=== PATIENT | female | born 1985 | race Caucasian/White ===

== ENCOUNTER 2021-09-02 16:08 | Outpatient (REF) | payer BC, SELFPAY ==
--- NOTE | ~2021-09-02 | XR_ITS ---
EXAMINATION: XR CHEST CLINICAL INFORMATION: Cough and fatigue COMPARISON: 07/05/2019 TECHNIQUE: 2 views of the chest were obtained. FINDINGS: Since the previous examination postsurgical changes revealed residual scarring on the left with blunting of left costophrenic angle. The right lung is clear. Cardiomediastinal silhouette is normal XR/XR chest 2V IMPRESSION: Postsurgical changes on the left with hyperinflation. Clear right lung
== END 2021-09-02 16:09 | disposition home or self-care (01) ==
LOC: HO.XRAY 16:08
PROVIDERS: PCP Internal Medicine; Visit Provider Internal Medicine
DX: R05.9 Cough, unspecified (principal); R53.83 Other fatigue
CPT/HCPCS: 71046

== ENCOUNTER → 2022-01-19 10:39 | Outpatient (BNVA) | payer BC, SELFPAY | PROVIDERS: PCP Internal Medicine; Visit Provider Advanced Practice Midwife | DX: Z13.89 Encounter for screening for other disorder (principal) ==

== ENCOUNTER 2022-07-08 13:04 | Outpatient (REF) | payer BC, SELFPAY ==
--- NOTE | ~2022-07-08 | XR_ITS ---
EXAMINATION: XR CHEST 2 VIEW CLINICAL INFORMATION: Cough COMPARISON: 09/02/2021 TECHNIQUE: PA and lateral views of the chest obtained. FINDINGS: The lungs are clear. Chronic blunting of the left costophrenic sulcus is unchanged. The cardiomediastinal silhouette is normal. XR/XR chest 2V IMPRESSION: No acute cardiopulmonary disease.
[2022-07-08 13:59] LABS: Binax Internal Control QC Valid; Binax Now Covid-19 Ag Negative (Negative); Binax Performed by: HO.BONILM
== END 2022-07-08 13:05 | disposition home or self-care (01) ==
LOC: HO.HMGCX 13:04
PROVIDERS: PCP Internal Medicine
DX: Z20.822 Contact with and (suspected) exposure to COVID-19 (principal); R05.9 Cough, unspecified; J06.9 Acute upper respiratory infection, unspecified
CPT/HCPCS: 71046; 87811; C9803

== ENCOUNTER 2022-07-20 14:04 | Outpatient (REF) | payer BC, SELFPAY ==
[2022-07-20 14:57] LABS: Influenza A PCR POSITIVE (Negative); Influenza B PCR NEGATIVE (Negative); Resp Syncy Virus RNA Qual PCR NEGATIVE (Negative); SARS COV2 PCR INHOUSE NEGATIVE (Negative)
== END 2022-07-20 14:05 | disposition home or self-care (01) ==
LOC: HO.LNP 14:04
PROVIDERS: Visit Provider Internal Medicine
DX: Z20.822 Contact with and (suspected) exposure to COVID-19 (principal); R05.9 Cough, unspecified; R06.02 Shortness of breath; R50.9 Fever, unspecified
CPT/HCPCS: 0241U

== ENCOUNTER 2022-07-20 16:16 | Outpatient (REF) | payer BC, SELFPAY ==
--- NOTE | ~2022-07-20 | XR_ITS ---
EXAMINATION: XR CHEST CLINICAL INFORMATION: COPD. Cough. COMPARISON: 09/02/[address] dated 04/29/2019. TECHNIQUE: PA and lateral views of the chest were obtained. FINDINGS: Again seen is blunting of the left lateral and posterior costophrenic sulci, unchanged. Linear bands of pleural-parenchymal scarring are noted in the superior segment of the left lower lobe. No consolidation, pneumothorax, or pleural effusion. Cardiac and mediastinal contours are normal. Pulmonary vasculature is unremarkable. Minimal degenerative spondylosis in the thoracic spine. XR/XR chest 2V IMPRESSION: No acute cardiopulmonary findings. Chronic blunting of the left lateral and posterior costophrenic sulci, unchanged from prior and likely due to pleural-parenchymal scarring. A small effusion is also possible.
[2022-07-20 16:45] LABS: D Dimer High Sensitivity 175 NG/ML
[2022-07-20 16:52] LABS: Hematocrit 44.1 % (37.0-47.0); Imm Gran Abs Auto 0.02 X10*3/uL (0.00-0.03); Imm Gran Pct Auto 0.4 % (0.0-0.4); MANUAL DIFF FLAG SCAN; PLT CLUMP 1; Red Cell Distribution Width 12.2 % (11.0-16.0); SCAN SMEAR FLAG 1
[2022-07-20 16:54] LABS: Basophils Percent Auto 0.6 % (0-2); Eosinophils Percent Auto 0.6 % (0-4); Lymphocytes Absolute Auto 0.6 X10*3/uL (1.2-4.9); Lymphocytes Percent Auto 11.6 % (20-40); Mean Corpuscular Hemoglobin 31.1 pg (27.0-33.0); Mean Corpuscular Volume 91.3 fL (80.0-98.0); Mean Platelet Volume 10.9 fL (9.4-12.3); Monocytes Absolute Auto 0.9 X10*3/uL (0.1-1.2); Monocytes Percent Auto 16.6 % (2-11); Neutrophils Absolute Auto 3.8 x10*3/uL (2.0-8.3); Neutrophils Percent Auto 70.2 % (45-73); Red Blood Count 4.83 X10*6/uL (4.20-5.50)
[2022-07-20 16:59] LABS: White Blood Count 5.4 X10*3/uL (4.8-10.8)
[2022-07-20 17:09] LABS: B Type Natriuretic Peptide 19 pg/mL (<100)
[2022-07-20 17:12] LABS: SLIDE REVIEW VERIFIED
[2022-07-20 17:15] LABS: Alanine Aminotransferase 9 U/L (0-31); Albumin Level 4.3 g/dL (3.5-5.0); Alkaline Phosphatase 45 U/L (39-117); Anion Gap 12 (12-20); Aspartate Amino Transferase 12 U/L (5-31); Bilirubin Total 0.6 mg/dL (0.0-1.0); Blood Urea Nitrogen 10 mg/dL (9-16); Calcium 9.2 mg/dL (8.4-10.2); Carbon Dioxide 25 mmol/L (22-29); Chloride 102 mmol/L (96-108); Estimated Glomerular Filt Rate > 60; Glucose Random 94 mg/dL (60-115); Sodium 135 mmol/L (135-145); Total Protein 7.1 g/dL (6.5-8.0)
== END 2022-07-20 16:17 | disposition home or self-care (01) ==
LOC: HO.XRAY 16:16
PROVIDERS: PCP Internal Medicine; Visit Provider Internal Medicine
DX: J44.9 Chronic obstructive pulmonary disease, unspecified (principal); R05.9 Cough, unspecified; R50.9 Fever, unspecified
CPT/HCPCS: 36415; 71046; 80053; 83880; 85025; 85379

== ENCOUNTER → 2022-12-22 14:32 | Outpatient (BNVA) | payer BC, SELFPAY | PROVIDERS: PCP Internal Medicine; Visit Provider Internal Medicine Pulmonary Disease ==

== ENCOUNTER 2023-01-06 14:04 | Outpatient (REF) | payer BC, SELFPAY ==
--- NOTE | ~2023-01-06 | CT_ITS ---
EXAMINATION: CT CHEST WITHOUT CONTRAST CLINICAL INFORMATION: Status post lung COMPARISON: 04/29/2019 TECHNIQUE: Multidetector volumetric CT imaging of the chest was done. Axial MIP volume rendering provided. Sagittal and coronal reformatted images were obtained. This CT examination was performed using dose optimization techniques as appropriate, variously including the following: *Automated exposure control *Adjustment of mA and/or kV according to patient size (this includes techniques or standardized protocols for targeted exams where dose is matched to indication/reason for exam; i.e. 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 There are no nodules infiltrates or pleural effusions seen. The airways are patent. MEDIASTINUM: The mediastinum is normal. CORONARY ARTERY CALCIFICATION: None visualized on this study. PLEURA: There is no pleural effusion. No pleural mass or thickening. AXILLA: No lymphadenopathy. UPPER ABDOMEN: Unremarkable. OSSEOUS STRUCTURES: Unremarkable. CT/CT chest wo IV con IMPRESSION: Status post left lower lobe resection. Edematous changes Fleischner guidelines were followed.
== END 2023-01-06 14:05 | disposition home or self-care (01) ==
LOC: HO.CT 14:04
PROVIDERS: PCP Internal Medicine; Visit Provider Internal Medicine Pulmonary Disease
DX: J18.9 Pneumonia, unspecified organism (principal); Z87.75 Personal history of (corrected) congenital malformations of respiratory system; Z90.2 Acquired absence of lung [part of]
CPT/HCPCS: 71250

== ENCOUNTER 2023-01-06 14:33 | Outpatient (REF) | payer BC, SELFPAY | END 2023-01-06 14:34 | disposition home or self-care (01) | LOC: HO.LNP 14:33 | PROVIDERS: Visit Provider Internal Medicine Pulmonary Disease | DX: R05.9 Cough, unspecified (principal) | CPT/HCPCS: 87070; 87205 ==

== ENCOUNTER 2023-01-10 13:54 | Outpatient (REF) | payer BC, SELFPAY ==
[2023-01-13 14:48] LABS: Immunoglobulin G Subclass 1 535 mg/dL (382-929); Immunoglobulin G Subclass 2 325 mg/dL (241-700); Immunoglobulin G Subclass 3 67 mg/dL (22-178); Immunoglobulin G Subclass 4 24.7 mg/dL (4-86); Immunoglobulin G Total 963 mg/dL (600-1640)
[2023-01-14 00:09] LABS: IgA 235 mg/dL (47-310); IgG 1005 mg/dL (600-1640); IgM 229 mg/dL (50-300)
== END 2023-01-10 13:55 | disposition home or self-care (01) ==
LOC: HO.LAB 13:54
PROVIDERS: PCP Internal Medicine; Visit Provider Internal Medicine Pulmonary Disease
DX: R05.9 Cough, unspecified (principal); J15.9 Unspecified bacterial pneumonia
CPT/HCPCS: 36415; 82784

== ENCOUNTER → 2023-01-24 14:27 | Outpatient (BNVA) | payer BC, SELFPAY | PROVIDERS: PCP Internal Medicine; Visit Provider Internal Medicine Pulmonary Disease ==

== ENCOUNTER 2023-07-19 13:12 | Outpatient (REF) | payer BC, SELFPAY ==
--- NOTE | ~2023-07-19 | XR_ITS ---
EXAMINATION: XR CHEST CLINICAL INFORMATION: Chest pain COMPARISON: Previous chest x-ray most recent June [address] December 2022 TECHNIQUE: 2 views of the chest were obtained. FINDINGS: The cardiac and mediastinal contours are normal. The lungs are clear. There is blunting at the left costophrenic angle similar to previous exams suggestive of pleural thickening. No pleural effusion or pneumothorax. Bony structures are unremarkable. XR/XR chest 2V IMPRESSION: No evidence for acute disease in the chest.
--- NOTE | ~2023-07-19 | XR_ITS ---
EXAMINATION: XR SHOULDER, RIGHT CLINICAL INFORMATION: Pain. COMPARISON: None available. TECHNIQUE: AP external rotation, Grashey, scapular Y, and axillary views of the right shoulder. FINDINGS: The bones and soft tissues are normal. No fracture. Glenohumeral and acromioclavicular alignment is anatomic with normal joint space. No abnormal soft tissue calcifications. XR/XR shoulder RT min 2V IMPRESSION: Normal right shoulder.
--- NOTE | ~2023-07-19 | XR_ITS ---
EXAMINATION: XR HIP, LEFT CLINICAL INFORMATION: Pain. COMPARISON: CT abdomen and pelvis dated 06/14/2008. TECHNIQUE: AP and frog-leg lateral views of the left hip. FINDINGS: No fracture. Alignment is anatomic. Hip joint space is maintained. There is a minimal chronic avulsion fragment or accessory ossification center noted lateral to the acetabular roof. Soft tissues are unremarkable. An intrauterine device is noted. XR/XR hip LT min 2V IMPRESSION: Unremarkable left hip.
[2023-07-19 16:07] LABS: MANUAL DIFF FLAG NO
[2023-07-19 16:25] LABS: Basophils Absolute Auto 0.1 X10*3/uL (0.0-0.2); Basophils Percent Auto 0.7 % (0-2); Eosinophils Absolute Auto 0.2 X10*3/uL (0.0-0.4); Eosinophils Percent Auto 2.7 % (0-4); Hematocrit 43.1 % (37.0-47.0); Hemoglobin 14.6 g/dl (12.0-16.0); Imm Gran Abs Auto 0.02 X10*3/uL (0.00-0.03); Imm Gran Pct Auto 0.3 % (0.0-0.4); Lymphocytes Absolute Auto 1.8 X10*3/uL (1.2-4.9); Mean Corpuscular HGB Conc 33.9 g/dl (31.0-35.0); Mean Corpuscular Hemoglobin 32.2 pg (27.0-33.0); Mean Corpuscular Volume 94.9 fL (80.0-98.0); Mean Platelet Volume 10.4 fL (9.4-12.3); Monocytes Absolute Auto 0.6 X10*3/uL (0.1-1.2); Monocytes Percent Auto 8.2 % (2-11); Neutrophils Absolute Auto 4.6 x10*3/uL (2.0-8.3); Neutrophils Percent Auto 63.1 % (45-73); Platelet Count 187 X10*3/uL (160-400); Red Blood Count 4.54 X10*6/uL (4.20-5.50); Red Cell Distribution Width 12.3 % (11.0-16.0); White Blood Count 7.4 X10*3/uL (4.8-10.8)
[2023-07-19 16:53] LABS: Alanine Aminotransferase 17 U/L (0-31); Albumin Level 4.2 g/dL (3.5-5.0); Alkaline Phosphatase 44 U/L (39-117); Anion Gap 10 (12-20); Aspartate Amino Transferase 14 U/L (5-31); Bilirubin Total 0.6 mg/dL (0.0-1.0); Blood Urea Nitrogen 14 mg/dL (9-16); Calcium 9.1 mg/dL (8.4-10.2); Carbon Dioxide 28 mmol/L (22-29); Chloride 106 mmol/L (96-108); Cholesterol 185 mg/dL (<200); Estimated Glomerular Filt Rate > 60; Glucose Random 101 mg/dL (60-115); Sodium 140 mmol/L (135-145)
[2023-07-19 17:02] LABS: Free T4 (Free Thyroxine) 0.82 ng/dL (0.71-1.85); Thyroid Stimulating Hormone 1.53 uIU/mL (0.32-4.0)
== END 2023-07-19 13:13 | disposition home or self-care (01) ==
LOC: HO.HMGCX 13:12
PROVIDERS: PCP Internal Medicine; Visit Provider Internal Medicine
DX: R10.9 Unspecified abdominal pain (principal); M25.511 Pain in right shoulder; Q65.89 Other specified congenital deformities of hip; R63.5 Abnormal weight gain; R07.9 Chest pain, unspecified
CPT/HCPCS: 36415; 71046; 73030; 73502; 80053; 82465; 82550; 84439; 84443; 85025; 86140

== ENCOUNTER 2023-08-22 09:33 | Outpatient (AMB) | payer BC, SELFPAY ==
--- NOTE | 2023-08-22 09:35 | MHC.OFFVIS ---
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 She had believes that she was scheduling an appointment for a Mirena removal. [facility] was negative in September of 2012. She had a Mirena IUD inserted May 24 2018 she says a year after the of her son. She delivered both children at [facility] the 1st was a girl I with a 27 hour labor and her 2nd was a boy who delivered very quickly. A lot of the visit was spent trying to explain why she was scheduled here but that nobody in this building would be aware of where our particular office is today as we just opened up 2 weeks ago. The patient states she has been on comfortable with the IUD ever since it was inserted and it was checked several times with ultrasounds and deemed to be fine. Her plan is for her who is sitting outside to get a vasectomy and he has made an initial appointment with a doctor but she does not know the date of his appointment for vasectomy. 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 She also has what she calls as an umbilical hernia that is being investigated. She says she has not had a mammogram and is anticipating that it will hurt. [facility] Medical History Viral upper respiratory tract infection with cough Female Reproductive History Menstrual Date of last menstrual period: 08/07/23 control method: other (IUCD unknown ?) Date of last pap smear: 10/15/12 (negative, prev.2006) History of abnormal pap smear: No Physical Exam Const General: healthy appearing, comfortable, no acute distress, well developed and alert Nutritional Appearance: average body habitus Orientation/consciousness: patient oriented x3 Limitations: no limitations HEENT Head: Yes normocephalic Neck Neck: Yes normal visual inspection Chest Chest palpation & inspection: normal inspection of the chest Breast/axilla inspection: normal inspection of the breasts and normal inspection of the axillae Breast/axilla palpation: normal palpation of the breasts and normal palpation of the axillae Resp Effort & Inspection: normal respiratory effort GI Inspection: Yes normal to inspection, No Abdominal wall edema and No distended Palpation (GI): Soft to palpation and nontender Other: Normal external nail kegger exam vagina pink moist with whitish discharge cervix multiparous very anterior tiny tip of IUD string that appears white noted in os. Uterus small retroverted mobile nontender good tone with Kegel. General: Yes bladder normal to palpation External Female Exam: normal external appearance and normal appearance of the urethra Speculum Exam - Vagina: normal appearance of the vagina, normal palpation and normal vaginal discharge Speculum Exam - Cervix: normal appearance of the cervix, normal palpation and nontender Bimanual exam- vagina & uterus: normal bimanual exam, normal palpation, uterine size normal, bladder normal to palpation, consistency normal, normal palpation, uterine mobility normal, uterine shape normal, No Cervical tenderness present, non-tender and no cervical motion tenderness Bimanual Exam- Adnexa, other: normal adnexae, no masses, normal and No adnexal tenderness Neuro General: patient oriented x3 Assessment & Plan Assessment & Plan (1) S/P lobectomy of lung: Code(s): Z90.2 - Acquired absence of lung [part of] (2) Breast cancer screening: Code(s): Z12.39 - Encounter for other screening for malignant neoplasm of breast (3) Cervical cancer screening: Comment: Last Pap in system 10/15/12-and previous Pap -2006. Code(s): Z12.4 - Encounter for screening for malignant neoplasm of cervix (4) IUD (intrauterine device) in place: Code(s): Z97.5 - Presence of (intrauterine) contraceptive device (5) Well woman exam with routine gynecological exam: Code(s): Z01.419 - Encounter for gynecological examination (general) (routine) without abnormal findings Plan -----Discussed in this visit the following: healthy balanced diet, regular and consistent exercise, getting recommended health screens, doing the best she can for her particular health concerns, kegel exercises, pap smear screening and followup recommendations, mammography screening and SBE, normal changes in cycles in her life stage--- . Discussed the importance of breast cancer screening and that we recommend annual screening from age 40 on she has an aunt who had breast cancer. The patient is reluctant to go because she is afraid it will hurt I recommend scheduling it for after her. When it is more likely to be more comfortable. Discussed that she also could have her IUD removed with her. And it would be more likely to be comfortable then as well as it is easier to remove for her. Discussed that it would not be usual for us to remove an IUD at the 1st visit in 7 years and that was an error in scheduling she may have the Mirena (if it is a Mirena) removed it either office but it would need to be scheduled appropriately. She will be following up with her primary care provider and another doctor about the hernia and I will order her mammogram. I urged safer sex and backup with condoms if she ever feels that she has symptoms of ovulation which she is unsure about and also after the IUD is removed and until her gets his negative sperm count reading. Orders: Orders Pap Smear Today Z01.419 - Encounter for gynecological examination (general) (routine) without abnormal findings Bacterial Vaginosis Panel Today Z20.2 - Contact with and (suspected) exposure to infections with a predominantly sexual mode of transmission MM tomosynthesis screening BI Today Z01.419 - Encounter for gynecological examination (general) (routine) without abnormal findings, Z12.31 - Encounter for screening mammogram for malignant neoplasm of breast, Z12.39 - Encounter for other screening for malignant neoplasm of breast CT NG by PCR Today Z01.419 - Encounter for gynecological examination (general) (routine) without abnormal findings Coding Level of Care Code New Pt Prev Care 40-64y(00107) Diagnoses S/P lobectomy of lung Z90.2 Breast cancer screening Z12.39 Cervical cancer screening Z12.4 IUD (intrauterine device) in place Z97.5 Well woman exam with routine gynecological exam Z01.419
[2023-08-22 09:51] VITALS: BP 118/72; BMI 32.2
== END 2023-08-22 10:29 | disposition home or self-care (01) ==
LOC: HO.HWSM 09:33
PROVIDERS: PCP Internal Medicine; Visit Provider Advanced Practice Midwife
DX: Z01.419 Encounter for gynecological examination (general) (routine) without abnormal findings (principal)
CPT/HCPCS: 99386

== ENCOUNTER 2023-08-22 09:33 | Outpatient (REF) | payer BC, SELFPAY ==
[2023-08-23 15:33] LABS: BV Int Neg Control Negative (Negative); BV Int Pos Control Positive (Positive)
[2023-08-24 11:04] LABS: CT PCR NOT DETECTED (Not Detect.); NG PCR NOT DETECTED (Not Detect.)
== END 2023-08-22 09:34 | disposition home or self-care (01) ==
LOC: HO.LAB 09:33
PROVIDERS: PCP Internal Medicine; Visit Provider Advanced Practice Midwife
DX: Z01.419 Encounter for gynecological examination (general) (routine) without abnormal findings (principal); Z11.51 Encounter for screening for human papillomavirus (HPV); Z20.2 Contact with and (suspected) exposure to infections with a predominantly sexual mode of transmission; Z97.5 Presence of (intrauterine) contraceptive device; Z90.2 Acquired absence of lung [part of]
CPT/HCPCS: 0353U; 87480; 87510; 87624; 87660; 88142

== ENCOUNTER 2023-10-07 10:44 | Outpatient (REF) | payer BC, SELFPAY ==
--- NOTE | ~2023-10-07 | MM_ITS ---
EXAMINATION: MM SCREENING DIGITAL BREAST TOMOSYNTHESIS, BILATERAL CLINICAL INFORMATION: Screening. Asymptomatic. COMPARISON: Mammography: This is a baseline mammogram. TECHNIQUE: Digital breast tomosynthesis is performed in both the craniocaudal and mediolateral oblique views along with computer-aided detection (CAD). Synthesized 2D images are generated from the tomosynthesis. FINDINGS: The breasts are heterogeneously dense, which may obscure small masses (ACR BI-RADS breast composition Category c). There are no significant masses, abnormal calcifications, or other abnormalities. MM/MM tomosynthesis screening BI IMPRESSION: No mammographic evidence of malignancy. ASSESSMENT: BI-RADS BI-RADS 1 - Negative RECOMMENDATION: Routine annual mammography screening. 1 year F/U This examination should not preclude the clinical evaluation of a suspicious palpable abnormality. This patient's information was entered into a reminder system with a target due date for their next mammogram.
== END 2023-10-07 10:45 | disposition home or self-care (01) ==
LOC: HO.MAMMO 10:44
PROVIDERS: PCP Internal Medicine; Visit Provider Advanced Practice Midwife
DX: Z12.31 Encounter for screening mammogram for malignant neoplasm of breast (principal)
CPT/HCPCS: 77063; 77067

== ENCOUNTER → 2023-10-07 10:45 | Outpatient (BNV) | payer BC, SELFPAY | PROVIDERS: PCP Internal Medicine; Visit Provider Radiology Diagnostic Radiology | DX: Z12.31 Encounter for screening mammogram for malignant neoplasm of breast (principal) | CPT/HCPCS: 77063; 77067 ==

== ENCOUNTER 2024-01-31 13:14 | Outpatient (REF) | payer BC, SELFPAY ==
[2024-01-31 16:31] LABS: Alanine Aminotransferase 11 U/L (0-31); Albumin Level 4.3 g/dL (3.5-5.0); Alkaline Phosphatase 58 U/L (39-117); Aspartate Amino Transferase 11 U/L (5-31); Bilirubin Direct 0.2 mg/dL (0.0-0.5); Bilirubin Total 0.5 mg/dL (0.0-1.0)
== END 2024-01-31 13:15 | disposition home or self-care (01) ==
LOC: HO.HMGCLDS 13:14
PROVIDERS: PCP Internal Medicine; Visit Provider Podiatrist
DX: B35.1 Tinea unguium (principal)
CPT/HCPCS: 36415; 80076

== ENCOUNTER 2024-02-08 13:47 | Outpatient (AMB) | payer BC, SELFPAY ==
[2024-02-08 14:03] VITALS: BP 118/70; BMI 31.6
--- NOTE | 2024-02-08 14:03 | A.OFFVIS_ITS ---
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 Allergies No Known Allergies [No Known Allergies*] Allergy (Verified 02/08/24 14:05) hops Allergy (Unknown, Uncoded 02/08/24 14:05) stomach upset Medication List - Last Reconciled 02/08/24 by Annabella Box CNM albuterol sulfate 90 mcg/actuation 1 inh inhalation Q4-6H PRN levonorgestrel (Mirena) intrauterine Is last menstrual period known: Yes Last menstrual period: 01/28/24 Do you need a note to return to daycare/school/sports/work: No HPI HPI IUD Removal: Details: Patient is here at the front window saying she has an appointment today for her IUD removal she wanted it removed in August but since we did not have the right equipment the got rescheduled and it had been rescheduled a few times. She says she has had discomfort ever since the IUD was placed and her plan is for her to get a vasectomy and she has bought condoms and is ready with them implants to use them until such time as he gets his vasectomy and negative sperm count.. It was confusion about the appointment in that it was scheduled in the system for different day which she is on vacation that day and she would never have scheduled then. [facility] Medical History Viral upper respiratory tract infection with cough Female Reproductive History Menstrual Age of Menarche: 9 Duration of menses: 3-5 days Date of last menstrual period: 01/28/24 control method: progestin IUCD Total pregnancies: 2 Full term: 2 Date of last pap smear: 08/22/23 (negative) History of abnormal pap smear: No Physical Exam Vital Signs: Last Vital Signs BP 118/70 02/08/24 14:03 BMI result Body Mass Index 31.6 Other: IUD string had been easily seen the last visit. Cervix multiparous IUD string not visible initially cervical os was probed with 2 Cytobrush is until the very edge of the Mirena string into view string was grasped with forceps and removed with 1 tug is patient coughed. She did experience some cramping that it she has already taken ibuprofen. Patient tolerated well. Office Procedures IUD Insert/Removal Details Details: See exam section strings not initially visible teased into view with 2 Cytobrush is then strings were grasped with forceps Mirena IUD was removed was 1 tug while patient gave a cough who has no bleeding she would some cramping but tolerated it well she visualized her cervix afterwards.. [id number] Removal Procedure code (CPT) selection complete Results Reviewed Results Reviewed: Review of last visit. Assessment & Plan Assessment & Plan (1) IUD (intrauterine device) in place: Code(s): Z97.5 - Presence of (intrauterine) contraceptive device Category: Social Hx (2) Encounter for IUD removal: Code(s): Z30.432 - Encounter for removal of intrauterine contraceptive device Category: Medical Plan See exam seizure IUD removed easily with 1 tug after strings were teased into view with Cytobrush. Patient clear she will be using condoms until such time as her 's vasectomy is done and reveals sperm count is 0. See her for annual exams otherwise. She is going to [facility] the week the other appointment was suppo sedly made. discussed her plans. Orders: Orders AMB IUD Insertion/Removal - Patient Supply Today Z30.432 - Encounter for removal of intrauterine contraceptive device, Z97.5 - Presence of (intrauterine) contraceptive device Coding Level of Care Code Est Pt Level 3 (25354) Diagnoses IUD (intrauterine device) in place Z97.5 Encounter for IUD removal Z30.432 CPT Codes Details - CPT: 69086-IHO Removal ([id number])
== END 2024-02-08 14:41 | disposition home or self-care (01) ==
LOC: HO.HWSM 13:47
PROVIDERS: PCP Internal Medicine; Visit Provider Advanced Practice Midwife
DX: Z30.432 Encounter for removal of intrauterine contraceptive device (principal)
CPT/HCPCS: 58301

== ENCOUNTER → 2024-02-08 13:47 | Outpatient (BNVA) | payer BC, SELFPAY | PROVIDERS: PCP Internal Medicine; Visit Provider Advanced Practice Midwife | DX: Z30.432 Encounter for removal of intrauterine contraceptive device (principal) | CPT/HCPCS: 58301 ==

== ENCOUNTER 2025-07-03 09:24 | Outpatient (AMB) | payer BC, SELFPAY ==
--- NOTE | 2025-07-03 08:02 | MHC.PC.OV ---
Vital Signs 07/03/25 09:29 Height 5 ft 2 in Weight 154 lb BMI 28.2 BP 116/70 Blood Pressure Location Rt brachial Position Sitting Pulse 65 Pulse Source Pulse Oximeter Temp 97.8 F Temp Source Temporal Artery Scan Pulse Oximetry (%) 99 Oxygen Delivery Method Room Air Intake Visit Reasons: DEVI/Croke upper back, (see comments) Doughmaker Required: No Accompanied by: Self / Same As Patient Allergies No Known Allergies (No Known Allergies*) Allergy (Verified 07/03/25 08:06) hops Allergy (Unknown, Uncoded 02/08/24 14:05) stomach upset Medication List - Last Reconciled 07/03/25 by LILIBETH Mccollum cyclobenzaprine 5 mg PO TID 14 days methylprednisolone (Medrol (Isrrael)) PO PER PKG DIR for 6 days Tobacco use date assessed: 07/03/25 Dental Screening Dental Screen Date: 07/03/25 Did you have a dental visit in the last 12 months?: No Did you have a dental problem in the last 6 months where you did not have access to dental care?: No HPI HPI Comments History of Present Illness Details The patient is a 40-year-old female presenting with arm pain. The pain began last week after she struggled to get her 12-year-old daughter out of bed. She describes the pain as involving the entire arm unit, located in the armpit, shoulder socket, and radiating down to the elbow, affecting both the front and back of the arm, as well as extending into the neck and behind the shoulder blade. The patient has a history of a pectoral and rotator cuff injury in high school that she feels never healed incorrectly. This prior injury causes intermittent issues, such as difficulty lifting items overhead, a getting-stuck sensation, and an inability to carry a purse or backpack on that shoulder for extended periods. For the current symptoms, she has tried heat, ice, and a single day of ibuprofen. She reports a past negative experience with gabapentin. She reports feeling constantly cold and acknowledges a family history of anemia and thyroid cancer, prompting her to request checks on her iron reserves and thyroid function. The patient is generally healthy, is not taking any regular medications, and has an allergy to hops. She is due for labs. Her PAP is due in 08/2026. She declines mammogram. She feels compressing the breasts causes more harm than good. Medical History: - Allergy to hops - History of pectoral and rotator cuff injury in high school - Past adverse reaction to gabapentin - Possible anemia, per family history Medications: - The patient is not on any current medications. Patient was informed and verbally consented to the use of an ambient scribe for clinic note documentation during this visit. [facility] Medical History (Updated 07/03/25 @ 10:10 by LILIBETH Mccollum) Cold intolerance Health care maintenance Right arm pain Viral upper respiratory tract infection with cough Family History (Updated 07/03/25 @ 09:34 by Mary Guerrero MA) Mother No problems noted. Father No problems noted. Social History Housing: House Patient Tobacco Use Status: Former Tobacco user e-Cigarette/Vaping Use: Former Use service: No Current occupational status: employed Cognitive needs: No Hearing needs: No Vision needs: Yes (rx glasses) Female Reproductive History Menstrual Age of Menarche: 9 Questionnaire PHQ-9 Over the last 2 weeks, how often have you been bothered by any of the following problems? 1. Little interest or pleasure in doing things: not at all 2. Feeling down, depressed, or hopeless: several days 3. Trouble falling or staying asleep, or sleeping too much: nearly every day 4. Feeling tired or having little energy: nearly every day 5. Poor appetite or overeating: not at all 6. Feeling bad about yourself - or that you are a failure or have let yourself or your family down: not at all 7. Trouble concentrating on things, such as reading the newspaper or watching television: not at all 8. Moving or speaking so slowly that other people could have noticed. Or the opposite - being so fidgety or restless that you have been moving around a lot more than usual: not at all 9. Thoughts that you would be better off or of hurting yourself in some way: not at all Total score: 7 Depression Screening Interpretation: Positive Depression Screening Follow-up: Follow-up Visit Requested Depression Screening Done: Yes 09680 - PHQ-9 Billing: Yes Source: Developed by Drs. Selvin Martinez, Inessa Lundberg, Cale Archuleta and colleagues, with an educational dominguez from [employer]. Thrive Questionnaire Date Thrive assessed: 07/03/25 I am a: Patient Within the past 12 months, did the food you bought not last and you didn't have the money to get more?: Never true Within the past 12 months, did you worry whether your food would run out before you got money to buy more?: Never true Do you have trouble paying for medicines?: No Do you have trouble getting transportation to medical appointments?: No Do you have trouble paying your heating and electricity bill?: No Do you have trouble taking care of your child, family member or friend?: No Do you have trouble with day-to-day activities such as bathing, preparing meals, shopping, managing finances, etc.?: No Are you currently unemployed and looking for a job?: No Are you interested in more education?: No THRIVE Score: 0 AUDIT C Alcohol Use Questionnaire (AUDIT-C) 1. How often do you have a drink containing alcohol?: Monthly or less 2. How many drinks containing alcohol do you have on a typical day when you are drinking?: 1 or 2 3. How often do you have six or more drinks on one occasion?: Less than monthly Total Score: 2 ALIS-7 AMB Questionnaire ALIS-7 Date ALIS - 7 assessed: 07/03/25 Feeling nervous, anxious, or on edge: 0 = Not at all Not being able to stop or control worryin = Not at all Worrying too much about different things: 0 = Not at all Trouble relaxin = Not at all Being so restless that it is hard to sit still: 0 = Not at all Becoming easily annoyed or irritable: 0 = Not at all Feeling afraid as if something awful might happen: 0 = Not at all Total ALIS-7 score (0-4 normal; 5-9 mild; 10-14 moderate; 15-21 severe): 0 Source: Developed by Drs. Selvin Martinez, Inessa Lundberg, Cale Archuleta and colleagues, with an educational dominguez from [employer]. Review of Systems Narrative - Musculoskeletal: Reports severe pain in the arm, originating in the armpit and shoulder socket and radiating down to the elbow, into the neck, and behind the shoulder blade. - She also reports that her hips pop in and out of socket when walking. - General: Reports feeling constantly cold. - Allergic/Immunologic: Reports an allergy to hops. Physical exam (Primary Care) Vital Signs: Last Vital Signs Temp 97.8 F 07/03/25 09:29 Pulse 65 07/03/25 09:29 BP 116/70 07/03/25 09:29 Pulse Ox 99 07/03/25 09:29 Oxygen Delivery Method Room Air 07/03/25 09:29 BMI result Body Mass Index 28.2 GENERAL Well developed, Well nourished, in no apparent distress HEENT Head-Normocephalic Neck- Supple, No lymphadenopathy, thyroid WNL RESPIRATORY Normal I:E, Clear to auscultation CARDIOVASCULAR Regular, rate and rhythm, No murmurs or rubs MUSCULOSKELETAL On palpation, there is tenderness in the shoulder socket. - Muscle spasms and tenderness are noted in the back, and palpation of the back elicits a pulling sensation in the armpit. - Mild crepitus is present with shoulder movement. NEUROLOGICAL Gait normal PSYCHIATRIC Oriented to person, place and time Mood and affect -mild depression Appearance WNL Speech WNL Thought processes WNL Tobacco/Smoking Status: Tobacco use Status Tobacco use date assessed 07/03/25 07/03/25 08:09 Patient Tobacco Use Status Former Tobacco user 07/03/25 09:35 e-Cigarette/Vaping Use Former Use 07/03/25 09:35 PHQ-9: PHQ-9 Score PHQ-9: Total score 7 07/03/25 09:35 Depression Screening Interpretation: Positive Depression Screening Follow-up: Follow-up Visit Requested Thrive Assessment: Date of Thrive Assessment Date Thrive assessed 07/03/25 07/03/25 08:18 Coding Level of Care Code Established Pt Est Pt Level 4 (99867) Patient Type Established Diagnoses Right arm pain M79.601 Breast cancer screening Z12.39 Positive screening for depression on 9-item Patient Health Questionnaire (PHQ-9) Z13.31 Additional Codes PHQ-9 - 09401 - PHQ-9 Billing: Yes ([id number]) Time Spent (min) 30 Comment Time spent on chart review, H&P, patient education and orders. Assessment & Plan Assessment & Plan (1) Right arm pain: Code(s): M79.601 - Pain in right arm Category: Medical Plan: The patient's presentation with pain in the armpit, shoulder socket, and radiating down the arm is suggestive of a muscle and tendon sprain/strain, especially given the inciting event and physical exam findings of muscle spasms. A short course of oral steroids via a Medrol dose pack was chosen over NSAIDs to manage inflammation, as the patient reports that high doses of ibuprofen are not effective for her. Cyclobenzaprine will be prescribed as a muscle relaxer to address the significant muscle spasms. She was advised to continue using heat, perform daily full range of motion exercises to prevent frozen shoulder, and to follow up in one to two weeks if her symptoms are not 70-80% improved, at which point physical therapy will be considered. (2) Breast cancer screening: Code(s): Z12.39 - Encounter for other screening for malignant neoplasm of breast Category: Medical Plan: Given the patient's family history of a maternal aunt with breast cancer in her early 30s, annual breast cancer screening is recommended. The patient has declined future mammograms due to discomfort from the compression. The limitations of ultrasound as a primary screening tool and the high cost of MRI were discussed. (3) Positive screening for depression on 9-item Patient Health Questionnaire (PHQ-9): Code(s): Z13.31 - Encounter for screening for depression Plan: Patient's PHQ9 was 7. She is not interested in treatment at this time. Will monitor. Patient to schedule for PE Plan The patient's presentation with pain in the armpit, shoulder socket, and radiating down the arm is suggestive of a muscle and tendon sprain/strain, especially given the inciting event and physical exam findings of muscle spasms. A short course of oral steroids via a Medrol dose pack was chosen over NSAIDs to manage inflammation, as the patient reports that high doses of ibuprofen are not effective for her. Cyclobenzaprine will be prescribed as a muscle relaxer to address the significant muscle spasms. She was advised to continue using heat, perform daily full range of motion exercises to prevent frozen shoulder, and to follow up in one to two weeks if her symptoms are not 70-80% improved, at which point physical therapy will be considered. Orders: Orders Ferritin Today R68.89 - Other general symptoms and signs, Z00.00 - Encounter for general adult medical examination without abnormal findings TSH reflex Free T4 Today R68.89 - Other general symptoms and signs, Z00.00 - Encounter for general adult medical examination without abnormal findings Vitamin D 25-OH Total Today Z00.00 - Encounter for general adult medical examination without abnormal findings Complete Blood Count no Diff Today Z00.00 - Encounter for general adult medical examination without abnormal findings Comprehensive Met. Panel Today R68.89 - Other general symptoms and signs, Z00.00 - Encounter for general adult medical examination without abnormal findings, Z13.1 - Encounter for screening for diabetes mellitus Lipid Panel Today Z00.00 - Encounter for general adult medical examination without abnormal findings, Z13.220 - Encounter for screening for lipoid disorders Medications: New methylprednisolone (Medrol (Isrrael)) PO PER PKG DIR for 6 days 21 ea 0RF cyclobenzaprine 5 mg PO TID 42 tabs 0RF for muscle tightness 14 days Patient Instructions: - I am sending two prescriptions to your pharmacy, [facility] on [facility]. - The first prescription is a Medrol dose pack, which is a 6-day course of steroids. - The second is for cyclobenzaprine, a muscle relaxer. - Take the muscle relaxer at night initially, as it can cause sleepiness. - Continue to use heat on the affected area and perform daily range of motion exercises, such as walking your fingers up a wall, to prevent the shoulder from getting stiff. - Please call the office in 1-2 weeks if your shoulder is not about 70-80% better after finishing the steroid medication. - I have put in orders for lab work. - Please do not eat or drink anything except water for 8-12 hours before the blood test (fasting). - Please schedule an appointment for a physical exam at the front desk attendant.
[2025-07-03 09:29] VITALS: BP 116/70; PULSE 65; TEMP 36.6; O2SAT 99; BMI 28.2
--- OUTSIDE RECORDS SUMMARY | 2025-07-03 10:46 | XMS_ITS | Patient Health Record ---
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 6-10 How soon after you wake up d o you smoke your first cigarette? within 5 minutes Are you interested in quitting? Thinking about q uitting Alcohol Screen Question Answer Notes Did you have a drink containing alcohol in the p ast year? Yes Points 0 Interpretation Negative Tobacco use other than smoking: Question Answer Notes Are you an other tobacco user? No Plan Of Treatment Pending Test Test Name Order Date *Liver Function Test (LFT) 01/29/2024 Insurance Providers Payer Name Payer Address Payer Phone Subscriber Number Group Number Insured Name Patient Relationship to Insured Coverage Start Date Coverage End Date [facility] [address] [place] [address] [phone] [id number] Sivakumar Becerra Spouse - patient is the spouse of the insured Medical (General) History Medical History History ICD Code Back,Hip,and Knee pain Chicken pox hip displaytion Surgical History Surgery Date(Month/Year) lung surgery
--- OUTSIDE RECORDS SUMMARY | 2025-07-03 10:46 | XMS_ITS | Clinical Summary ---
Author Organization [facility] it[facility] Address [address] [place] [address] Care Team Providers Care Composite Bond Worker Name Role Phone Unavailable Primary Care Provider Unavailabl e Social History Tobacco Use Types Packs/Day Years Used Date Smoking Tobacco: Never Assessed Comments Unknown Sex and Gender Information Value Date Recorded Sex Assigned at Not on file Legal Sex Female 3:47 AM EST Gender Identity Not on file Sexual Orientation Not on file Plan of Treatment Health Maintenance Due Date Last Done Comments Breast Cancer Screening 1983 DTaP,Tdap,and Td Vaccines (1 - Tdap) 2002 Hepatitis B Vaccines (1 of 3 - 19+ 3-dose series) 2002 Cervical Cancer Screening: P ap Smear 2004 HPV Vaccines (1 - 3-dose SCD M series) 2010 Depression Screening 08/21/2024 COVID-19 Vaccine ( - 2024-2 6 season) 2025 Influenza Vaccine (#1) 2025 RSV Immunization Adult Patie nts (1 - 1-dose 75+ series) 2058 HIB Vaccines Aged Out No longer eligi ble based on patient's age to complete this topic Hepatitis A Vaccines Aged Out No long er eligible based on patient's age to complete this topic IPV Vaccines Aged Out No longer eligi ble based on patient's age to complete this topic MMR Vaccines Aged Out No longer eligi ble based on patient's age to complete this topic Meningococcal ACWY Vaccine Aged Out N o longer eligible based on patient's age to complete this topic Meningococcal B Vaccine Aged Out No l onger eligible based on patient's age to complete this topic Pneumococcal Vaccine: Pediat rics (0 to 5 Years) and At-Risk Patients (6 to 49 Years) Aged Out No longer eligible b ased on patient's age to complete this topic RSV Immunization Patients Un bailee 20 months Aged Out No longer eligible b ased on patient's age to complete this topic Varicella Vaccines Aged Out No longer eligible based on patient's age to complete this topic
== END 2025-07-03 10:02 | disposition home or self-care (01) ==
PROVIDERS: PCP Physician Assistant Medical; Visit Provider Physician Assistant Medical
DX: M79.601 Pain in right arm (principal); Z12.39 Encounter for other screening for malignant neoplasm of breast; Z13.31 Encounter for screening for depression

== ENCOUNTER 2025-07-28 09:28 | Outpatient (AMB) | payer BC, SELFPAY ==
--- NOTE | 2025-07-28 09:31 | A.OFFPC_ITS ---
Vital Signs 07/28/25 09:37 Height 5 ft 2.4 in Weight 155 lb BMI 28.0 BP 114/64 Blood Pressure Location Lt brachial Position Sitting Respiration 18 Pulse 78 Pulse Source Pulse Oximeter Temp 97.8 F Temp Source Temporal Artery Scan Pulse Oximetry (%) 98 Oxygen Delivery Method Room Air Intake Visit Reasons: Annual Leaf Size Picker Required: No Accompanied by: Self / Same As Patient Allergies No Known Allergies (No Known Allergies*) Allergy (Verified 07/28/25 09:32) hops Allergy (Unknown, Uncoded 02/08/24 14:05) stomach upset Medication List - Last Reconciled 07/28/25 by LILIBETH Mccollum cyclobenzaprine 5 mg PO TID nabumetone 750 mg PO BID Tobacco use date assessed: 07/03/25 Dental Screening Dental Screen Date: 07/03/25 HPI HPI Comments History of Present Illness Details History of Present Illness The patient is a 40 year old female presenting with follow-up of persistent right arm pain. She reports that the pain has improved after taking steroids, which reduced significant swelling that had made her arm feel like mountains. The pain is now felt from her elbow up to the back of her neck and is particularly tender in the posterior aspect of her arm and upper back. 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 The patient has a history of having a lung taken out and requested a follow-up chest x-ray for monitoring. Her blood pressure today was 116/72 mmHg, which is well-controlled. She did not complete her lab work prior to the visit, noting it has been a couple of years since her last labs were drawn. Surgical History: - History of lung removal. Medications: - Cyclobenzaprine for arm pain. - A steroid (unspecified) was recently t aken for arm swelling. Family History: - Son has autism. Health Maintenance - The patient has not had lab work done in a couple of years. - Discussed getting baseline lab work. - Discussed a chest x-ray for surveillan ce following a prior lung removal. 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 - Family Status: She is with two children, one in middle school and one in elementary school. - Substance Use: She states she will be drinking alcohol on one day during her upcoming vacation as part [place]. - Her is a recovering alcoholic. - Family Planning: Her is schedu led for a vasectomy next Monday, nine years after their son was born. - Stressors: She describes a very busy s chedule, managing two jobs and transportation for her and two children with only one car, making time for commitments like physical therapy a significant challenge. - Her son has autism, and she reports ch georgesmorales with his current school, hoping to get him transferred to a special school. Patient was informed and verbally consented to the use of an ambient scribe for clinic note documentation during this visit. [facility] Medical History (Updated 07/28/25 @ 10:27 by LILIBETH Mccollum) Cold intolerance Health care maintenance Right arm pain Upper back pain on right side Viral upper respiratory tract infection with cough Family History (Updated 07/03/25 @ 09:34 by Mary Guerrero MA) Mother No problems noted. Father No problems noted. Social History Housing: House Patient Tobacco Use Status: Former Tobacco user e-Cigarette/Vaping Use: Former Use service: No Current occupational status: employed Cognitive needs: No Hearing needs: No Vision needs: Yes (rx glasses) Female Reproductive History Menstrual Age of Menarche: 9 Questionnaire Thrive Questionnaire Date Thrive assessed: 07/03/25 ALIS-7 AMB Questionnaire ALIS-7 Date ALIS - 7 assessed: 07/03/25 Source: Developed by Drs. Selvin Martinez, Inessa Lundberg, Cale Archuleta and colleagues, with an educational dominguez from [employer]. Review of Systems Narrative CONSTITUTIONAL Negative HEAD/NECK Neck pain on right RESPIRATORY Negative CARDIOVASCULAR Negative MUSCULOSKELETAL Right arm pain from elbow to shoulder Upper back pain on right with muscle tightness NEUROLOGICAL Negative PSYCHIATRIC Negative Physical exam (Primary Care) Vital Signs: Last Vital Signs Temp 97.8 F 07/28/25 09:37 Pulse 78 07/28/25 09:37 Resp 18 07/28/25 09:37 BP 114/64 07/28/25 09:37 Pulse Ox 98 07/28/25 09:37 Oxygen Delivery Method Room Air 07/28/25 09:37 BMI result Body Mass Index 28.0 GENERAL Well developed, Well nourished, in no apparent distress HEENT Head-Normocephalic Neck- Supple, No lymphadenopathy, thyroid WNL RESPIRATORY Normal I:E, Clear to auscultation CARDIOVASCULAR Regular, rate and rhythm, No murmurs or rubs MUSCULOSKELETAL - Muscle spasms and tenderness are noted in right upper back. right shoulder- full ROM, nontender, DTR 2+ NEUROLOGICAL Gait normal PSYCHIATRIC Oriented to person, place and time Mood and affect -mild depression Appearance WNL Speech WNL Thought processes WNL Tobacco/Smoking Status: Tobacco use Status Tobacco use date assessed 07/03/25 07/28/25 09:34 Patient Tobacco Use Status Former Tobacco user 07/28/25 09:34 e-Cigarette/Vaping Use Former Use 07/28/25 09:34 Thrive Assessment: Date of Thrive Assessment Date Thrive assessed 07/03/25 07/28/25 09:34 Coding Level of Care Code Established Pt Complex visit Add On [id number] Patient Type Established Diagnoses Upper back pain on right side M54.9 S/P lobectomy of lung Z90.2 Time Spent (min) 25 Comment Time spent on H&P, Patient education, orders and follow up Assessment & Plan Assessment & Plan (1) Upper back pain on right side: Code(s): M54.9 - Dorsalgia, unspecified Category: Medical Plan: Patient does not have ability to PT at this time (2) S/P lobectomy of lung: Code(s): 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 1. Myalgia The patient reports persistent arm pain despite some improvement with steroids. The plan includes continuing cyclobenzaprine and adding nabumetone, an anti- inflammatory, to be taken twice daily with food. Physical therapy was recommended but deferred due to the patient's significant time and transportation constraints. Massage therapy was also suggested as a helpful measure. A follow-up visit is scheduled in four weeks to reassess her condition and reconsider physical therapy if improvement is insufficient. 2. Preventative Care To establish a new baseline, an order for lab work was placed, which the patient can complete at her convenience without fasting. An order for a chest x-ray was also placed for surveillance following her prior lung removal, which she plans to complete after her vacation and her 's procedure. 3. Hypertension The patient's blood pressure was recorded at 116/72 mmHg, which is within the optimal range. She was educated that this value is perfect and well below the threshold of 135/85 mmHg. Discussion Notes I discussed the management of the patient's arm pain, including prescribing Nabumetone twice daily and refilling her cyclobenzaprine. I advised her not to mix cyclobenzaprine with alcohol but confirmed that the new anti-inflammatory (referred to as Celebrex in error) would be safe to take with alcohol on her vacation. We reviewed that her blood pressure of 116/72 mmHg is excellent. I recommended physical therapy but acknowledged it was not feasible for her at this time due to logistical challenges; we agreed to hold off for now. I placed orders for baseline lab work, explaining that fasting is not necessary, and a chest X-ray for surveillance of her previous lung surgery. We will follow up in four weeks to reassess her pain. Patient Instructions - I have sent a prescription for Nabumetone and a refill for Cyclobenzaprine to [facility] on [facility] in [place]. - Take Nabumetone twice a day with food to help with pain and inflammation. - Continue taking cyclobenzaprine as you have been for muscle pain, but do not take it with alcohol. - It is okay to take Nabumetone if you have alcohol on your vacation. - Go to the lab station near our office to have your blood drawn for baseline tests; you do not need to be fasting. - You can get the chest x-ray done at the hospital whenever you have time; the order is in the system. - Consider getting a massage to help with your arm and back pain. - Please schedule a follow-up appointment in about four weeks to check on your progress. Orders: Orders XR chest 2V Today R05.9 - Cough, unspecified, Z90.2 - Acquired absence of lung [part of] Medications: New cyclobenzaprine 5 mg PO TID 90 tabs 0RF for muscle pain nabumetone with food 750 mg PO BID 60 tabs 0RF for back and arm pain
[2025-07-28 09:37] VITALS: BP 114/64; PULSE 78; RESP 18; TEMP 36.6; O2SAT 98; BMI 28.0
== END 2025-07-28 10:25 | disposition home or self-care (01) ==
LOC: HO.HMCHD 09:29
PROVIDERS: PCP Physician Assistant Medical; Visit Provider Physician Assistant Medical
DX: M54.9 Dorsalgia, unspecified (principal); Z90.2 Acquired absence of lung [part of]